=== PATIENT | female | born 2000 | race Caucasian/White ===

== ENCOUNTER 2023-09-18 15:11 | Outpatient (CLI) | payer OTHER ==
--- NOTE | 2023-09-18 17:40 | Ultrasound Report ---
PROCEDURE: Pelvic w/Transvaginal INDICATIONS: DYSMENORRHEA TECHNIQUE: Real-time scanning was performed of the pelvic organs, with image documentation. Additional endovagi nal scanning was necessary due to incomplete visualization of the adnexal and endometrial structures by transabdominal scanning. COMPARISON: None. FINDINGS: Uterus: Uterus is retroverted and normal in size at 6.5 x 3.3 x 4.6 cm. The myometrium is homogeneo us. The endometrium measures 3 mm in combined thickness. Ovaries: The right ovary measures 3.0 x 2.1 x 1.8 cm, with a calculated ovarian volume of 6.1 cc. T he left ovary measures 2.4 x 2.0 x 1.5 cm, with a calculated ovarian volume of 3.8 cc. The ovaries h ave a normal sonographic appearance. Less than 12 follicles can be seen in each ovary. No adnexal m asses are seen. No cystic lesions measuring greater than 3 cm. Other: No pathologic free abdominal or pelvic fluid. IMPRESSION: No cause for patient's symptoms is identified. Normal pelvic ultrasound. Reviewed by: Anurag Qiu MD on 09/18/2023 5:38 PM PST Approved by: Anurag Qiu MD on 09/18/2023 5:38 PM PST Station ID: [id number]
== END 2023-09-18 15:12 | disposition home or self-care (01) ==
LOC: DI 15:11
PROVIDERS: ATTEND Nurse Practitioner
DX: N94.6 Dysmenorrhea, unspecified (principal)

== ENCOUNTER 2023-11-19 15:40 | Outpatient (CLI) | payer OTHER, BC ==
[2023-11-19] MEDS ORDERED: GADOTERATE MEGLUMINE 5 MMOL/10 ML VIAL ONE (15:54)
[2023-11-19] MEDS ORDERED: GADOTERATE MEGLUMINE 2.5 MMOL/5 ML VIAL ONE (15:54)
[2023-11-19] MEDS ORDERED: GADOTERATE MEGLUMINE 5 MMOL/10 ML VIAL IVP ONE (17:45)
--- NOTE | 2023-11-22 13:58 | MRI Report ---
PROCEDURE: PELVIS W/WO INDICATIONS: DYSMENORRHEA CONTRAST: CLARISCAN 12.8 TECHNIQUE: Coronal ultra fast SE, sagittal breath-hold T2 FSE; axial T1 FSE with and without fat saturation thro ugh the pelvis. Optional long- and short-axis uterine nonbreath-hold T2 FSE through the uterus. Sag ittal or axial dynamic ultra fast GE during administration of contrast. Post-contrast axial or coron al ultra fast GE / 2-D spoiled GE with fat saturation from the iliac crests to the symphysis. Option al diffusion weighted imaging and ADC may be performed. COMPARISON: Pelvic ultrasound 09/18/2023 FINDINGS: Image quality: Excellent. Uterus: Uterus is retroverted and normal in size. There are no myometrial masses. There are subtle s ubendometrial cystic irregularities along the anterior and posterior aspects of the junctional zone, as well as a few tiny T2 hyperintense short linear projections part way into the junctional zone. Mac ctional zone is normal thickness. Endometrium is normal in thickness. The cervix has a normal morpho logy. There is a hormone ring in the proximal vaginal canal. Adnexa: Both ovaries are normal in size. The right ovary contains numerous sub-5 mm follicles, sever al of which are peripherally displaced. The left ovary also contains a few subcentimeter follicles. T here is a paraovarian cyst along the anterior margin of the left ovary measuring 1.1 cm. No suspiciou s adnexal masses or ovarian cysts which require follow-up. Urinary system: Bladder wall is normal in thickness. Distal ureters are non distended. Urethra brandan ears normal in morphology. Nodes and vessels: No pelvic or inguinal adenopathy by size criteria. Iliac vessels are normal in s ize. Bowel and peritoneum: Small amount of physiologic fluid in the pelvis. Inferior colon and small michael l loops are normal in caliber. Soft tissues: No inguinal hernias. No findings of pelvic floor incompetence in the absence of provo cation. Bones: Marrow demonstrates normal overall signal. IMPRESSION: 1. There are subtle subendometrial cystic changes and tiny T2 hyperintensities raising possibility of adenomyosis. However, other are no other typical MR findings to support adenomyosis. Clinical correl ation is recommended. 2. Numerous, tiny peripherally displaced right ovarian follicles. This can be physiologic. In the set ting of hyperandrogenism, this may indicate polycystic ovarian syndrome. Correlation with lab values for diagnosis is recommended. Reviewed by: Elena Mendoza MD on 11/22/2023 1:57 PM PST Approved by: Elena Mendoza MD on 11/22/2023 1:57 PM PST Station ID: [id number]
== END 2023-11-19 15:41 | disposition home or self-care (01) ==
LOC: DI 15:40
PROVIDERS: ATTEND Nurse Practitioner
DX: N94.6 Dysmenorrhea, unspecified (principal); N93.9 Abnormal uterine and vaginal bleeding, unspecified; R93.89 Abnormal findings on diagnostic imaging of other specified body structures
CPT/HCPCS: 72197; A9575